=== PATIENT | male | born 1935 | race Caucasian/White ===

== ENCOUNTER 2018-04-09 12:30 | Inpatient (IN) ==
--- NOTE | 2018-04-09 14:26 | ED ---
HPI General Chief complaint: Skin/Abscess/Foreign Body Stated complaint: Right foot complaint Time Seen by Provider: 04/09/18 14:14 History of Present Illness HPI narrative: 83-year-old male with history of diabetes, previous toe amputation, presents from [facility] for evaluation of right second toe infection. The patient reports that he bumped his toe 5 days ago and he sustained a wound. I called and spoke to the nurse at [place] who says that he is actually had a wound on his dorsal right second toe over the past several weeks which has been nonhealing. Initially he was started on ciprofloxacin with no improvement, then he was on a 2-week course of doxycycline with no improvement. He has had debridement of the wound with no improvement. Today he was seen by inventory specialist manager Dr. Jackson and sent here for further treatment of this wound. He denies any pain. He denies any fevers, chills, weakness. Related Data Home Medications Medication Instructions Recorded Confirmed aspirin 81 mg PO DAILY 04/09/18 04/09/18 atorvastatin 10 mg PO DAILY 04/09/18 04/09/18 citalopram 20 mg PO DAILY 04/09/18 04/09/18 insulin degludec [Tresiba 100 unit SUBCUT DAILY 04/09/18 04/09/18 FlexTouch U-100] levothyroxine [Synthroid] 100 mcg PO DAILY 04/09/18 04/09/18 linagliptin [Tradjenta] 5 mg PO DAILY 04/09/18 04/09/18 lisinopril 30 mg PO DAILY 04/09/18 04/09/18 melatonin 5 mg PO HS PRN 04/09/18 04/09/18 metformin 1,000 mg PO BID 04/09/18 04/09/18 omeprazole 20 mg PO DAILY 04/09/18 04/09/18 ranitidine HCl [Zantac] 150 mg PO DAILY 04/09/18 04/09/18 Allergies Allergy/AdvReac Type Severity Reaction Status Date / Time No Known Allergies Allergy Verified 04/09/18 14:49 Review of Systems ROS: all other systems reviewed are negative [facility] Medical History Medical History Amputated great toe (Acute) Diabetes (Acute) Hypothyroidism (Acute) Senile dementia (Acute) Social History Social History Substance History: No History of Abuse Second Hand Smoke Exposure: No Smoking Status: Former smoker Tobacco Type: Cigarettes How Often Do You Have a Drink Containing Alcohol: Never Recent Travel in [facility] within the Last 8 Weeks: No Recent Out of Country Travel within the Last 8 Weeks: No Exam Narrative Exam Narrative: GENERAL: Well-developed well-nourished male in no acute distress SKIN: Warm and dry. Examination of the dorsal aspect of the right second toe reveals a wound with some scabbing, some surrounding erythema and induration. There is a small amount of purulent yellow drainage. A wound culture was obtained. HEAD: Atraumatic. Normocephalic. EYES: Pupils equal and round. No scleral icterus. No injection or drainage. ENT: No nasal bleeding or discharge. Mucous membranes pink and moist. NECK: Trachea midline. No JVD. CARDIOVASCULAR: Regular rate and rhythm. No murmur appreciated. RESPIRATORY: No accessory muscle use. Clear to auscultation. Breath sounds equal bilaterally. GASTROINTESTINAL: Abdomen soft, non-tender, nondistended. Hepatic and splenic margins not palpable. MUSCULOSKELETAL: Skin as noted above. Previous right first toe amputation noted. 2+ dorsalis pedis and posterior tibial pulses noted in the right lower extremity. NEUROLOGICAL: Awake and alert. No obvious cranial nerve deficits. Motor grossly within normal limits. Normal speech. Course Initial Documented Vital Signs Temperature 97.6 F 04/09/18 12:35 Pulse Rate 75 04/09/18 12:35 Respiratory Rate 16 04/09/18 12:35 Blood Pressure 98/62 L 04/09/18 12:35 Pulse Oximetry 96 04/09/18 12:35 Last Documented Vital Signs Temperature 97.8 F 04/09/18 14:38 Pulse Rate 77 04/09/18 14:38 Respiratory Rate 17 04/09/18 14:38 Blood Pressure 136/84 04/09/18 14:38 Pulse Oximetry 96 04/09/18 14:38 Medical Decision Making ROMAN Attestation ROMAN supervised visit: Yes Attestation: I, Dr. Howard, have reviewed the advance practice practitioner's documentation and am in agreement, met with the patient face to face, made the diagnosis, and the medical decision making was done by me. *My assessment and Findings: Patient seen and examined by me in addition to Polo Cook, agree with his documentation MDM Narrative Medical decision making narrative: Lab work, wound culture, blood cultures, right second toe x-ray obtained. The patient was given vancomycin and Zosyn. Lab work reveals WBC count of 14.5, lactic acid 2.1, CRP is slightly elevated, 1 L normal saline bolus administered. X-ray imaging is consistent with osteomyelitis of the right second toe. The patient will be admitted. Medical Screen Exam Complete: Yes Emergency Medical Condition: Yes Differential Diagnosis Differential Diagnosis: Diabetic foot wound, cellulitis, osteomyelitis Lab Data Result diagrams: 04/09/18 14:40 04/09/18 14:40 Lab Results 04/09/18 04/09/18 04/09/18 Range/Units 14:40 14:40 14:40 WBC 14.7 H (4.0-11.0) th/mm3 RBC 4.76 (4.50-5.90) mil/mm3 Hgb 16.0 (13.0-17.0) gm/dL Hct 46.7 (39.0-51.0) % MCV 98.1 (80.0-100.0) fL MCH 33.7 (27.0-34.0) pg MCHC 34.3 (32.0-36.0) % RDW 13.7 (11.6-17.2) % Plt Count 189 (150-450) th/mm3 MPV 9.1 (7.0-11.0) fL Neut % (Auto) 79.0 H (16.0-70.0) % Lymph % (Auto) 9.4 (9.0-44.0) % [place] % (Auto) 8.1 H (0.0-8.0) % Eos % (Auto) 2.9 (0.0-4.0) % Baso % (Auto) 0.6 (0.0-2.0) % Neut # (Auto) 11.6 H (1.8-7.7) th/mm3 Lymph # (Auto) 1.4 (1.0-4.8) th/mm3 [place] # (Auto) 1.2 H (0.0-0.9) th/mm3 Eos # (Auto) 0.4 (0.0-0.4) th/mm3 Baso # (Auto) 0.1 (0.0-0.2) th/mm3 WBC Differential . Differential Comment Auto diff final ESR (0-20) mm/hr PT 10.9 (9.8-11.6) sec INR 1.1 Ratio APTT 28.7 (23.4-31.7) sec Sodium 136 (136-145) meq/L Potassium 5.0 (3.5-5.1) meq/L Chloride 102 (98-107) meq/L Carbon Dioxide 27.5 (21.0-32.0) meq/L Anion Gap 7 (5-15) meq/L BUN 14 (7-18) mg/dL Creatinine 1.55 H (0.60-1.30) mg/dL Estimated GFR 43 L (>89) mL/min Random Glucose 78 (74-106) mg/dL Lactic Acid (0.4-2.0) mmol/L Calcium 8.1 L (8.5-10.1) mg/dL Total Bilirubin 1.4 H (0.2-1.0) mg/dL AST 13 L (15-37) U/L ALT 15 (12-78) U/L Alkaline Phosphatase 111 (45-117) U/L C-Reactive Protein 0.36 H (0.00-0.30) mg/dL Total Protein 6.7 (6.4-8.2) g/dL Albumin 2.8 L (3.4-5.0) g/dL 04/09/18 04/09/18 Range/Units 14:40 14:40 WBC (4.0-11.0) th/mm3 RBC (4.50-5.90) mil/mm3 Hgb (13.0-17.0) gm/dL Hct (39.0-51.0) % MCV (80.0-100.0) fL MCH (27.0-34.0) pg MCHC (32.0-36.0) % RDW (11.6-17.2) % Plt Count (150-450) th/mm3 MPV (7.0-11.0) fL Neut % (Auto) (16.0-70.0) % Lymph % (Auto) (9.0-44.0) % [place] % (Auto) (0.0-8.0) % Eos % (Auto) (0.0-4.0) % Baso % (Auto) (0.0-2.0) % Neut # (Auto) (1.8-7.7) th/mm3 Lymph # (Auto) (1.0-4.8) th/mm3 [place] # (Auto) (0.0-0.9) th/mm3 Eos # (Auto) (0.0-0.4) th/mm3 Baso # (Auto) (0.0-0.2) th/mm3 WBC Differential Differential Comment ESR 2 (0-20) mm/hr PT (9.8-11.6) sec INR Ratio APTT (23.4-31.7) sec Sodium (136-145) meq/L Potassium (3.5-5.1) meq/L Chloride (98-107) meq/L Carbon Dioxide (21.0-32.0) meq/L Anion Gap (5-15) meq/L BUN (7-18) mg/dL Creatinine (0.60-1.30) mg/dL Estimated GFR (>89) mL/min Random Glucose (74-106) mg/dL Lactic Acid 2.1 H (0.4-2.0) mmol/L Calcium (8.5-10.1) mg/dL Total Bilirubin (0.2-1.0) mg/dL AST (15-37) U/L ALT (12-78) U/L Alkaline Phosphatase (45-117) U/L C-Reactive Protein (0.00-0.30) mg/dL Total Protein (6.4-8.2) g/dL Albumin (3.4-5.0) g/dL Imaging Data Radiologist's impression: Toe X-Ray 04/09/18 14:22 CONCLUSION: Destructive change involving the second middle and proximal phalanges prostatic of osteomyelitis Discharge Plan Discharge Disposition Patient Disposition: ED Admit(ED Internal Use Only) Discharge Condition Condition: Stable Discharge Order Discharge Orders: ED Use Only Admit Order (Routine); Ordered 04/09/18 Ordered By: Polo Cook Discharge Details Diagnosis: Osteomyelitis Physicians Team ED Provider: Celso Pearson ED Midlevel Provider: Polo Cook Primary Care Provider: Reji Velazquez V Rxs /Orders / Referrals /Forms Prescriptions: No Action atorvastatin 10 mg Tablet 10 mg PO DAILY RF: 0 levothyroxine [Synthroid] 100 mcg Tablet 100 mcg PO DAILY RF: 0 citalopram 20 mg Tablet 20 mg PO DAILY RF: 0 metformin 1,000 mg Tablet 1,000 mg PO BID RF: 0 ranitidine HCl [Zantac] 150 mg Tablet 150 mg PO DAILY RF: 0 lisinopril 30 mg Tablet 30 mg PO DAILY RF: 0 omeprazole 20 mg Capsule,Delayed Release(Dr/Ec) 20 mg PO DAILY RF: 0 aspirin 81 mg Tablet,Chewable 81 mg PO DAILY RF: 0 melatonin 5 mg Tablet 5 mg PO HS PRN (Reason: Insomnia) RF: 0 linagliptin [Tradjenta] 5 mg Tablet 5 mg PO DAILY RF: 0 insulin degludec [Tresiba FlexTouch U-100] 100 unit/mL (3 mL) Insulin Pen 100 unit SUBCUT DAILY RF: 0 Status ED Status: Pending Admission
--- NOTE | 2018-04-09 14:46 | XR ---
EXAM DATE: 04/09/2018 2:39 PM EST AGE/SEX: 83 years / Male INDICATIONS: Right 2nd toe pain stub it 5 days ago. CLINICAL DATA: This is the patient's initial encounter. Patient reports that signs and symptoms have been present for 1 day and indicates a pain score of 1/10. MEDICAL/SURGICAL HISTORY: Diabetes mellitus type II. . 1st toe amputated. COMPARISON: No prior exams available for comparison. FINDINGS: Multiple views of the second digit were obtained and demonstrate lytic and destructive change involvi ng the mid and distal aspect of the second proximal phalanx and base of the second middle phalanx. Th e middle phalanx appears partially subluxed and there is no normal residual joint. There is diffuse s oft tissue swelling. The patient is status post amputation of the first digit down to level of the me tatarsal head. CONCLUSION: Destructive change involving the second middle and proximal phalanges prostatic of osteomyelitis Electronically signed by: Bobby Valencia MD Board Certified Radiologist 04/09/2018 2:44 PM EST
[2018-04-09] MEDS ORDERED: Vancomycin Inj 1,000 MG in Sodium Chlor 0.9% Inj 250 ML IV.SIG ONE (14:51)
[2018-04-09 15:12] LABS: Baso # (Auto) 0.1 th/mm3 (0.0-0.2); Baso % (Auto) 0.6 % (0.0-2.0); Eos # (Auto) 0.4 th/mm3 (0.0-0.4); Eos % (Auto) 2.9 % (0.0-4.0); Hematocrit 46.7 % (39.0-51.0); Lymph # (Auto) 1.4 th/mm3 (1.0-4.8); Lymph % (Auto) 9.4 % (9.0-44.0); Mean Corpuscular HGB Conc 34.3 % (32.0-36.0); Mean Corpuscular Hemoglobin 33.7 pg (27.0-34.0); Mean Corpuscular Volume 98.1 fL (80.0-100.0); Mean Platelet Volume 9.1 fL (7.0-11.0); Mono # (Auto) 1.2 th/mm3 (0.0-0.9); Mono % (Auto) 8.1 % (0.0-8.0); Neut # (Auto) 11.6 th/mm3 (1.8-7.7); Platelet Count 189 th/mm3 (150-450); Red Blood Count 4.76 mil/mm3 (4.50-5.90); Red Cell Distribution Width 13.7 % (11.6-17.2); White Blood Count 14.7 th/mm3 (4.0-11.0)
[2018-04-09] MEDS ORDERED: Piperacil/Tazo 3.375 GM Premix 3.375 GM/50 ML PIGGYBACK IV.SIG ONE (15:15)
[2018-04-09 15:21] LABS: Activated Partial Thrombo Time 28.7 sec (23.4-31.7); INR 1.1 Ratio; Prothrombin Time 10.9 sec (9.8-11.6)
[2018-04-09 15:24] LABS: Alanine Aminotransferase 15 U/L (12-78); Albumin 2.8 g/dL (3.4-5.0); Anion Gap 7 meq/L (5-15); Aspartate Aminotransferase 13 U/L (15-37); Blood Urea Nitrogen 14 mg/dL (7-18); C-Reactive Protein 0.36 mg/dL (0.00-0.30); Calcium 8.1 mg/dL (8.5-10.1); Carbon Dioxide 27.5 meq/L (21.0-32.0); Chloride 102 meq/L (98-107); Glomerular Filtration Rate 43 mL/min (>89); Glucose,Random 78 mg/dL (74-106); Sodium 136 meq/L (136-145)
[2018-04-09 15:27] LABS: Alkaline Phosphatase 111 U/L (45-117); Total Protein 6.7 g/dL (6.4-8.2)
[2018-04-09] MEDS ORDERED: Sod Chloride 0.9% Inj 1,000 ML IV.SIG SCH (15:30)
--- NOTE | 2018-04-09 17:09 | P.HPIM ---
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 Patient was brought in from [facility] for a right foot 2nd digit draining ulceration. He was treated outpatient with Doxycycline and Cipro however did not have any improvement in his symptoms. He was seen by a health services information specialist Dr. Jackson and was sent here for further eval and care. Patient denies any significant pain, no fevers , no chills. He does not have any other complaints. PMH DM, Hypothyroidism, Dementia, Surg Hx Right foot 1st digit amputation Fam Hx significant for DM Social Hx Patient denies any hx of tobacco use, Says he rarely drank any etoh his whole life, No hx drug use. Inpatient Certification: I certify that the inpatient services were ordered in accordance with Medicare regulations governing the order. This includes certification that hospital inpatient services are reasonable and necessary and in the case of services not specified as inpatient-only under 42 CFR 419.22(n), that they are appropriately provided as inpatient services in accordance to with the 2-midnight benchmark under 43 CFR 412.3(e) Review of Systems All other systems reviewed negative except as stated in HPI PMFSH - History History Provided By: Patient - Medical History Medical History: Medical History (Last Updated 04/09/18 @ 15:07 by Delfina Palomino) Amputated great toe Diabetes Hypothyroidism Senile dementia - Tobacco History Second Hand Smoke Exposure: No Tobacco Use In Past 30 Days: No Smoking Status: Former smoker Tobacco Type: Cigarettes - Alcohol History How Often Do You Have a Drink Containing Alcohol: Never - Substance Use History Substance History: No History of Abuse - Travel History Recent Travel in the [facility] Within the Last 8 Weeks: No Recent Travel Out of the Country Within the Last 8 Weeks: No - Immunization History Tetanus Immunization: >5 Years Medications and Allergies Active Medications: Active Medications Sodium Chloride (Ns Flush) 2 ml IV.FLUSH PRN PRN PRN Reason: FLUSH AFTER USING IV ACCESS Last Admin: 04/09/18 15:03 Dose: 2 ml Allergies Allergy/AdvReac Type Severity Reaction Status Date / Time No Known Allergies Allergy Verified 04/09/18 14:49 Home Medications Medication Instructions Recorded Confirmed Type aspirin 81 mg PO DAILY 04/09/18 04/09/18 History atorvastatin 10 mg PO DAILY 04/09/18 04/09/18 History citalopram 20 mg PO DAILY 04/09/18 04/09/18 History insulin degludec [Tresiba 100 unit SUBCUT DAILY 04/09/18 04/09/18 History FlexTouch U-100] levothyroxine [Synthroid] 100 mcg PO DAILY 04/09/18 04/09/18 History linagliptin [Tradjenta] 5 mg PO DAILY 04/09/18 04/09/18 History lisinopril 30 mg PO DAILY 04/09/18 04/09/18 History melatonin 5 mg PO HS PRN 04/09/18 04/09/18 History metformin 1,000 mg PO BID 04/09/18 04/09/18 History omeprazole 20 mg PO DAILY 04/09/18 04/09/18 History ranitidine HCl [Zantac] 150 mg PO DAILY 04/09/18 04/09/18 History Exam Vital signs: Vital Signs 04/09/18 12:35 04/09/18 14:22 04/09/18 14:38 Temperature 97.6 F 97.9 F 97.8 F Pulse Rate 75 78 77 Respiratory Rate 16 17 17 Blood Pressure 98/62 L 139/85 136/84 Pulse Oximetry 96 96 96 Intake & Output 04/08/18 04/09/18 04/09/18 18:59 06:59 18:59 Intake Total 300 / 300 Balance 300 / 300 Weight 81.647 kg Intake: IV 300 / 300 Zosyn 3.375 GM Premix 3.375 gm 50 / 50 In 50 ml @ 100 mls/hr IV.SIG ONCE ONE Rx#:[id number] Vancomycin Inj 1,000 MG In NS 250 / 250 Inj 250 ML @ 250 mls/hr IV.SIG ONCE ONE Rx#:[id number] Narrative: Alert and oriented x 3 S1 S2 CTA B/L Abd soft, nontender, normal bowel sounds Exts Right foot 2nd digit ulceration on dorsal aspect s/p amputation of right 1st digit. Neuro No neuro deficits. Results - Labs CBC & Chem 7: 04/09/18 14:40 04/09/18 14:40 Labs: Short CBC 04/09/18 Range/Units 14:40 WBC 14.7 H (4.0-11.0) th/mm3 Hgb 16.0 (13.0-17.0) gm/dL Hct 46.7 (39.0-51.0) % Plt Count 189 (150-450) th/mm3 [facility] 04/09/18 14:40 Sodium 136 Potassium 5.0 Chloride 102 Carbon Dioxide 27.5 BUN 14 Creatinine 1.55 H Calcium 8.1 L Liver Function 04/09/18 Range/Units 14:40 Total Bilirubin 1.4 H (0.2-1.0) mg/dL AST 13 L (15-37) U/L ALT 15 (12-78) U/L Alkaline Phosphatase 111 (45-117) U/L Albumin 2.8 L (3.4-5.0) g/dL - Imaging Impressions Toe X-Ray 04/09/18 14:22 CONCLUSION: Destructive change involving the second middle and proximal phalanges prostatic of osteomyelitis Caprini VTE Risk Assessment Caprini VTE Risk Assessment: Moderate/High Risk (score >= 2) Caprini Risk Assessment Model: Point Value = 1 Point Value = 2 Point Value = 3 Point Value = 5 Age 41-60 Minor surgery BMI > 25 kg/m2 Swollen legs Varicose veins or History of unexplained or recurrent spontaneous Oral contraceptives or hormone replacement Sepsis (< 1 month) Serious lung disease, including pneumonia (< 1 month) Abnormal pulmonary function Acute myocardial infarction Congestive heart failure (< 1 month) History of inflammatory bowel disease Medical patient at bed rest Age 61-74 Arthroscopic surgery Major open surgery (> 45 min) Laparoscopic surgery (> 45 min) Malignancy Confined to bed (> 72 hours) Immobilizing plaster cast Central venous access Age >= 75 History of VTE Family history of VTE Factor V Leiden Prothrombin 23024A Lupus anticoagulant Anticardiolipin antibodies Elevated serum homocysteine Heparin-induced thrombocytopenia Other congenital or acquired thrombophilia Stroke (< 1 month) Elective arthroplasty Hip, pelvis, or leg fracture Acute spinal cord injury (< 1 month) Prophylaxis Regimen: Total Risk Factor Score Risk Level Prophylaxis Regimen 0-1 Low Early ambulation 2 Moderate Order ONE of the following: *Sequential Compression Device (SCD) *Heparin 5000 units SQ BID 3-4 Higher Order ONE of the following medications: *Heparin 5000 units SQ TID *Enoxaparin/Lovenox 40 mg SQ daily (WT < 150 kg, CrCl > 30 mL/min) *Enoxaparin/Lovenox 30 mg SQ daily (WT < 150 kg, CrCl > 10-29 mL/min) *Enoxaparin/Lovenox 30 mg SQ BID (WT < 150 kg, CrCl > 30 mL/min) AND/OR *Sequential Compression Device (SCD) 5 or more Highest Order ONE of the following medications: *Heparin 5000 units SQ TID (Preferred with Epidurals) *Enoxaparin/Lovenox 40 mg SQ daily (WT < 150 kg, CrCl > 30 mL/min) *Enoxaparin/Lovenox 30 mg SQ daily (WT < 150 kg, CrCl > 10-29 mL/min) *Enoxaparin/Lovenox 30 mg SQ BID (WT < 150 kg, CrCl > 30 mL/min) AND *Sequential Compression Device (SCD) Assessment and Plan - Plan This patient is an 83 y/o Male with a Dx of DM, Hypothyroidism, Dementia, hx of Right foot 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 Patient was brought in from [facility] for a right foot 2nd digit draining ulceration. He was treated outpatient with Doxycycline and Cipro however did not have any improvement in his symptoms. He was seen by a health services information specialist Dr. Jackson and was sent here for further eval and care. Patient denies any significant pain, no fevers , no chills. He does not have any other complaints. 1. Severe Sepsis 2/2 Right foot 2nd digit cellulitis concern for Osteomyelitis Patient with tachycardia, elevated lactate, and elevated wbc count. Blood cultures ordered. Patient started on IVF. Follow up repeat lactate. Continue IV vancomycin and zosyn. Xray shows destructive changes involving the 2nd middle and prox phalanges suggestive of osteomyelitis. Podiatry will be consulted to evaluate the patient. 2. DM Continue low dose insulin sliding scale. As per documentation patient takes 50 units of sub q Degludec daily. His blood sugar here is around 75. We will monitor his blood sugars and start basal insulin after closer monitoring of his blood sugars to avoid hypoglycemia. 3. DLD Continue statin. Cont aspirin. 4. Hypothyroidism Continue levothyroxine. No pharmacotherapy for DVT prophylaxis as patient may need intervention tomorrow.
[2018-04-09] MEDS ORDERED: Dextrose 50% in Water 50 ML Vial IV.PUSH PRN (17:13)
[2018-04-09] MEDS: Sod Chloride 0.9% Inj 1,000 ML IV.CONT SCH (17:48)
[2018-04-09] MEDS: Insulin NovoLOG Aspart Correctional Sugar Inj SQ SCH (20:37)
[2018-04-09] MEDS ORDERED: Insulin Glargine Inj 1,000 UNITS/10 ML Vial SQ SCH (21:00)
[2018-04-09] MEDS: Piperacil/Tazo 3.375 GM Premix 3.375 GM/50 ML PIGGYBACK IV.SIG SCH (21:05)
[2018-04-10] MEDS: Piperacil/Tazo 3.375 GM Premix 3.375 GM/50 ML PIGGYBACK IV.SIG SCH ×4 (03:41→21:13)
[2018-04-10] MEDS: Sod Chloride 0.9% Inj 1,000 ML IV.CONT SCH ×4 (03:42→23:30)
[2018-04-10] MEDS: Levothyroxine 100 MCG Tablet PO SCH (05:16)
[2018-04-10 05:54] LABS: Baso # (Auto) 0.1 th/mm3 (0.0-0.2); Baso % (Auto) 0.6 % (0.0-2.0); Eos # (Auto) 0.3 th/mm3 (0.0-0.4); Eos % (Auto) 3.5 % (0.0-4.0); Hematocrit 44.8 % (39.0-51.0); Hemoglobin 15.4 gm/dL (13.0-17.0); Lymph # (Auto) 1.3 th/mm3 (1.0-4.8); Lymph % (Auto) 13.3 % (9.0-44.0); Mean Corpuscular HGB Conc 34.4 % (32.0-36.0); Mean Corpuscular Hemoglobin 33.5 pg (27.0-34.0); Mean Corpuscular Volume 97.6 fL (80.0-100.0); Mean Platelet Volume 9.1 fL (7.0-11.0); Mono % (Auto) 10.6 % (0.0-8.0); Neut # (Auto) 6.8 th/mm3 (1.8-7.7); Platelet Count 151 th/mm3 (150-450); Red Blood Count 4.59 mil/mm3 (4.50-5.90); Red Cell Distribution Width 13.8 % (11.6-17.2); White Blood Count 9.5 th/mm3 (4.0-11.0)
[2018-04-10 06:36] LABS: Calcium 8.1 mg/dL (8.5-10.1); Carbon Dioxide 26.4 meq/L (21.0-32.0); Magnesium 1.6 mg/dL (1.5-2.5)
[2018-04-10] MEDS: Vancomycin Inj 1,000 MG in Sodium Chlor 0.9% Inj 250 ML IV.SIG SCH (08:59)
[2018-04-10] MEDS: Pantoprazole Sodium 20 MG DR Tablet PO SCH (08:59)
[2018-04-10] MEDS: Citalopram 20 MG Tablet PO SCH (08:59)
[2018-04-10] MEDS ORDERED: Magnesium Sulfate Inj 2 GM in Sodium Chlor 0.9% Inj 96 ML IV.SIG ONE (10:18)
--- NOTE | 2018-04-10 10:22 | P.PNIM ---
Subjective Interval history: Patient complains of some pain of the right foot. No other complaints. Physical Exam Vital signs: Vital Signs 04/09/18 12:35 04/09/18 14:22 04/09/18 14:38 Temperature 97.6 F 97.9 F 97.8 F Pulse Rate 75 78 77 Respiratory Rate 16 17 17 Blood Pressure 98/62 L 139/85 136/84 Pulse Oximetry 96 96 96 04/09/18 17:10 04/09/18 17:54 04/09/18 18:10 Temperature 97.9 F 97.8 F Pulse Rate 78 73 76 Respiratory Rate 17 16 Blood Pressure 118/68 124/77 Pulse Oximetry 97 98 04/09/18 19:03 04/09/18 20:00 04/10/18 00:00 Temperature 98.3 F 97.6 F 97.6 F Pulse Rate 74 72 67 Respiratory Rate 18 16 16 Blood Pressure 127/85 120/80 Pulse Oximetry 96 93 L 94 L 04/10/18 04:00 04/10/18 08:00 Temperature 97.8 F 97.6 F Pulse Rate 70 69 Respiratory Rate 16 16 Blood Pressure 111/70 130/72 Pulse Oximetry 94 L 92 L Intake & Output 04/09/18 04/10/18 04/10/18 18:59 06:59 18:59 Intake Total 1300 / 1300 1100 / 1100 Output Total 1800 / 1800 Balance 1300 / 1300 -700 / -700 Weight 81.647 kg 85.8 kg Intake: IV 1300 / 1300 1100 / 1100 NS Inj 1,000 ML @ 100 mls/hr IV 1000 / 1000 .CONT .Q10H STACY Rx#:[id number] Zosyn 3.375 GM Premix 3.375 gm 50 / 50 100 / 100 In 50 ml @ 100 mls/hr IV.SIG Q6H STACY Rx#:[id number] NS Inj 1,000 ML @ 1000 mls/hr 1000 / 1000 IV.SIG BOLUS STACY Rx#:[id number] Vancomycin Inj 1,000 MG In NS 250 / 250 Inj 250 ML @ 250 mls/hr IV.SIG ONCE ONE Rx#:[id number] Output: Urine 1800 / 1800 Other: Weight On Admission 87.1 kg Narrative: Alert and oriented x 3 S1 S2 CTA B/L Abd soft, nontender, normal bowel sounds Exts Right foot 2nd digit ulceration on dorsal aspect s/p amputation of right 1st digit. Neuro No neuro deficits. Results - Labs CBC & Chem 7: 04/10/18 05:35 04/10/18 05:35 Laboratory Results - last 24 hr 04/09/18 04/09/18 04/09/18 14:40 14:40 14:40 WBC 14.7 H RBC 4.76 Hgb 16.0 Hct 46.7 MCV 98.1 MCH 33.7 MCHC 34.3 RDW 13.7 Plt Count 189 MPV 9.1 Neut % (Auto) 79.0 H Lymph % (Auto) 9.4 [place] % (Auto) 8.1 H Eos % (Auto) 2.9 Baso % (Auto) 0.6 Neut # (Auto) 11.6 H Lymph # (Auto) 1.4 [place] # (Auto) 1.2 H Eos # (Auto) 0.4 Baso # (Auto) 0.1 WBC Differential . Differential Comment Auto diff final ESR PT 10.9 INR 1.1 APTT 28.7 Sodium 136 Potassium 5.0 Chloride 102 Carbon Dioxide 27.5 Anion Gap 7 BUN 14 Creatinine 1.55 H Estimated GFR 43 L POC Glucose Random Glucose 78 Lactic Acid Calcium 8.1 L Magnesium Total Bilirubin 1.4 H AST 13 L ALT 15 Alkaline Phosphatase 111 C-Reactive Protein 0.36 H Total Protein 6.7 Albumin 2.8 L 04/09/18 04/09/18 04/09/18 14:40 14:40 17:40 WBC RBC Hgb Hct MCV MCH MCHC RDW Plt Count MPV Neut % (Auto) Lymph % (Auto) [place] % (Auto) Eos % (Auto) Baso % (Auto) Neut # (Auto) Lymph # (Auto) [place] # (Auto) Eos # (Auto) Baso # (Auto) WBC Differential Differential Comment ESR 2 PT INR APTT Sodium Potassium Chloride Carbon Dioxide Anion Gap BUN Creatinine Estimated GFR POC Glucose Random Glucose Lactic Acid 2.1 H 2.5 H Calcium Magnesium Total Bilirubin AST ALT Alkaline Phosphatase C-Reactive Protein Total Protein Albumin 04/09/18 04/09/18 04/09/18 17:45 19:50 20:31 WBC RBC Hgb Hct MCV MCH MCHC RDW Plt Count MPV Neut % (Auto) Lymph % (Auto) [place] % (Auto) Eos % (Auto) Baso % (Auto) Neut # (Auto) Lymph # (Auto) [place] # (Auto) Eos # (Auto) Baso # (Auto) WBC Differential Differential Comment ESR PT INR APTT Sodium Potassium Chloride Carbon Dioxide Anion Gap BUN Creatinine Estimated GFR POC Glucose 148 H 138 H Random Glucose Lactic Acid 2.5 H Calcium Magnesium Total Bilirubin AST ALT Alkaline Phosphatase C-Reactive Protein Total Protein Albumin 04/10/18 04/10/18 04/10/18 05:35 05:35 08:01 WBC 9.5 RBC 4.59 Hgb 15.4 Hct 44.8 MCV 97.6 MCH 33.5 MCHC 34.4 RDW 13.8 Plt Count 151 MPV 9.1 Neut % (Auto) 72.0 H Lymph % (Auto) 13.3 [place] % (Auto) 10.6 H Eos % (Auto) 3.5 Baso % (Auto) 0.6 Neut # (Auto) 6.8 Lymph # (Auto) 1.3 [place] # (Auto) 1.0 H Eos # (Auto) 0.3 Baso # (Auto) 0.1 WBC Differential . Differential Comment Auto diff final ESR PT INR APTT Sodium 142 Potassium 4.0 D Chloride 108 H Carbon Dioxide 26.4 Anion Gap 8 BUN 12 Creatinine 1.39 H Estimated GFR 49 L POC Glucose 75 Random Glucose 66 L Lactic Acid Calcium 8.1 L Magnesium 1.6 Total Bilirubin AST ALT Alkaline Phosphatase C-Reactive Protein Total Protein Albumin Microbiology 04/09/18 14:20 Abscess - Toe Gram Stain - Final - Imaging Impressions Toe X-Ray 04/09/18 14:22 CONCLUSION: Destructive change involving the second middle and proximal phalanges prostatic of osteomyelitis Assessment and Plan - Plan This patient is an 83 y/o Male with a Dx of DM, Hypothyroidism, Dementia, hx of Right foot 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 Patient was brought in from [facility] for a right foot 2nd digit draining ulceration. He was treated outpatient with Doxycycline and Cipro however did not have any improvement in his symptoms. He was seen by a differential specialist Dr. Jackson and was sent here for further eval and care. Patient denies any significant pain, no fevers , no chills. He does not have any other complaints. 1. Severe Sepsis 2/2 Right foot 2nd digit cellulitis concern for Osteomyelitis WBC count normalized. Lactate increased to 2.5. Continue ivf, repeat lactate pending. Blood cultures negative up until now. Continue IV vancomycin and zosyn. Xray shows destructive changes involving the 2nd middle and prox phalanges suggestive of osteomyelitis. Podiatry was consulted to evaluate the patient. Will follow up with their recs. 2. DM Continue low dose insulin sliding scale. As per documentation patient takes 50 units of sub q Degludec daily. Blood sugars ranging from 70s to 140s. Will continue with sliding scale for now. 3. DLD Continue statin. Cont aspirin. 4. Hypothyroidism Continue levothyroxine. No pharmacotherapy for DVT prophylaxis as patient may need surgical intervention.
[2018-04-10] MEDS: Insulin NovoLOG Aspart Correctional Sugar Inj SQ SCH ×4 (10:45→21:15)
[2018-04-10] MEDS: Mag Sulf 1 gm/100 ml Premix 100 ML IV.SIG SCH ×2 (11:36→13:02)
--- NOTE | 2018-04-10 18:51 | MB ---
cc: Nguyen Bianchi DPM DATE: 04/10/2018 REASON FOR CONSULTATION: Right second digit osteomyelitis. HISTORY OF PRESENT ILLNESS: The patient is an 83-year-old male with a history of DM, hypothyroidism, dementia and right foot first ray amputation. The patient had a previous ulcer, was being treated by Dr. Jackson at the facility of [facility]. Patient denies any nausea, vomiting, fever, diarrhea, or chills. SOCIAL HISTORY: Denies illicit drugs, tobacco, and social alcohol. PHYSICAL EXAMINATION: DP and PT palpable. Right second digit contracted hammertoe. Edema, erythema. No active drainage. Fibrotic ulcers x2. ____ examination: Grossly absent. Well-healed incision at the first ray amputation. LABORATORY DATA:. On 04/10/____, WBCs 9.5, RBC of 4.59, H and H 15.4 and 44.8. ESR of 2. Right foot, 3 views, nonweightbearing: Fracture at the proximal phalanx with osteolysis of the bony anatomy at the proximal phalanx. Mild edema noted. ASSESSMENT: 1. Diabetes mellitus with neuropathy. 2. Right second digit osteomyelitis. Discussed with the patient conservative versus surgical intervention. The patient is adamant that he does not want additional amputation of the right second digit. Recommended 6 weeks of IV antibiotics and he can up with Dr. Jackson at his facility for continued . . I will be signing off at this point in time. Nguyen Bianchi DPM SR/mariann , 05:16 PM , 05:23 PM
[2018-04-10] MEDS: Melatonin 5 MG Tablet PO PRN (21:13)
[2018-04-11] MEDS: Piperacil/Tazo 3.375 GM Premix 3.375 GM/50 ML PIGGYBACK IV.SIG SCH ×2 (03:48→11:52)
[2018-04-11] MEDS: Sod Chloride 0.9% Inj 1,000 ML IV.CONT SCH ×3 (03:50→21:31)
[2018-04-11] MEDS: Levothyroxine 100 MCG Tablet PO SCH (06:17)
[2018-04-11] MEDS: Insulin NovoLOG Aspart Correctional Sugar Inj SQ SCH ×4 (08:30→21:32)
[2018-04-11 10:08] LABS: Calcium 7.4 mg/dL (8.5-10.1); Carbon Dioxide 25.5 meq/L (21.0-32.0); Magnesium 1.8 mg/dL (1.5-2.5); Potassium 4.3 meq/L (3.5-5.1)
[2018-04-11 10:17] LABS: Albumin 2.5 g/dL (3.4-5.0); Calcium-Albumin Corrected 8.6 mg/dL (8.5-10.1)
--- NOTE | 2018-04-11 10:33 | P.PNIM ---
Subjective Interval history: Patient complains of some pain in the distal second digit of the right foot. Otherwise no complaint. Physical Exam Vital signs: Vital Signs 04/10/18 12:00 04/10/18 16:00 04/10/18 20:00 Temperature 97.5 F L 98.9 F 98.1 F Pulse Rate 75 75 78 Respiratory Rate 16 16 16 Blood Pressure 123/75 164/84 H 128/66 Pulse Oximetry 96 94 L 95 04/11/18 00:00 04/11/18 04:00 04/11/18 08:00 Temperature 98 F 97.1 F L 97.5 F L Pulse Rate 71 67 67 Respiratory Rate 17 18 18 Blood Pressure 106/54 L 115/66 137/79 Pulse Oximetry 95 94 L 93 L Intake & Output 04/10/18 04/11/18 04/11/18 18:59 06:59 18:59 Intake Total 550 / 550 1310 / 1310 Output Total 350 / 350 675 / 675 Balance 200 / 200 635 / 635 Weight 85.5 kg Intake: IV 550 / 550 1310 / 1310 NS Inj 1,000 ML @ 100 mls/hr IV 1210 / 1210 .CONT .Q10H [facility] Rx#:[id number] Magnesium Sulfate 1 gm/D5W 100 200 / 200 ml Premix 100 ML @ 100 mls/hr IV.SIG Q1H [facility] Rx#:[id number] Zosyn 3.375 GM Premix 3.375 gm 100 / 100 100 / 100 In 50 ml @ 100 mls/hr IV.SIG Q6H [facility] Rx#:[id number] Vancomycin Inj 1,000 MG In NS 250 / 250 Inj 250 ML @ 250 mls/hr IV.SIG Q24H [facility] Rx#:[id number] Output: Urine 350 / 350 675 / 675 Narrative: Alert and oriented x 3 S1 S2 CTA B/L Abd soft, nontender, normal bowel sounds Exts Right foot 2nd digit ulceration on dorsal aspect s/p amputation of right 1st digit. Neuro No neuro deficits. Results - Labs CBC & Chem 7: 04/10/18 05:35 04/11/18 08:25 Laboratory Results - last 24 hr 04/10/18 04/10/18 04/10/18 10:39 13:01 17:21 Sodium Potassium Chloride Carbon Dioxide Anion Gap BUN Creatinine Estimated GFR POC Glucose 235 H 168 H Random Glucose Lactic Acid 1.4 Calcium Calcium Adj for Albumin Magnesium Albumin 04/10/18 04/11/18 04/11/18 19:59 07:55 08:25 Sodium 139 Potassium 4.3 Chloride 107 Carbon Dioxide 25.5 Anion Gap 7 BUN 11 Creatinine 1.35 H Estimated GFR 51 L POC Glucose 201 H 158 H Random Glucose 164 H Lactic Acid Calcium 7.4 L* Calcium Adj for Albumin 8.6 Magnesium 1.8 Albumin 2.5 L Microbiology 04/09/18 14:20 Abscess - Toe Gram Stain - Final 04/09/18 14:20 Abscess - Toe Wound Culture - Final Staphylococcus aureus 04/09/18 14:40 Blood - Peripheral Aerobic Blood Culture - Preliminary No growth in 1 day 04/09/18 14:40 Blood - Peripheral Anaerobic Blood Culture - Preliminary No growth in 1 day 04/09/18 14:45 Blood - Peripheral Aerobic Blood Culture - Preliminary No growth in 1 day 04/09/18 14:45 Blood - Peripheral Anaerobic Blood Culture - Preliminary No growth in 1 day Assessment and Plan - Plan This patient is an 83 y/o Male with a Dx of DM, Hypothyroidism, Dementia, hx of Right foot 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 Patient was brought in from [facility] for a right foot 2nd digit draining ulceration. He was treated outpatient with Doxycycline and Cipro however did not have any improvement in his symptoms. He was seen by a creative services specialist Dr. Jackson and was sent here for further eval and care. Patient denies any significant pain, no fevers , no chills. He does not have any other complaints. 1. Severe Sepsis 2/2 Right foot 2nd digit cellulitis concern for Osteomyelitis WBC count normalized. Lactate normalized Patient was evaluated by podiatry and the patient did not want to undergo amputation. Recommend agents from podiatry are to continue the patient on 6 weeks of IV antibiotics. Infectious disease consulted to evaluate the patient regarding his IV antibiotics. Will follow up with infectious disease. Continue IV vancomycin and zosyn. Xray shows destructive changes involving the 2nd middle and prox phalanges suggestive of osteomyelitis. 2. DM Continue low dose insulin sliding scale. 3. DLD Continue statin. Cont aspirin. 4. Hypothyroidism Continue levothyroxine.
[2018-04-11] MEDS: Citalopram 20 MG Tablet PO SCH (10:39)
[2018-04-11] MEDS: Pantoprazole Sodium 20 MG DR Tablet PO SCH (10:40)
[2018-04-11] MEDS: Vancomycin Inj 1,000 MG in Sodium Chlor 0.9% Inj 250 ML IV.SIG SCH (10:41)
--- NOTE | 2018-04-11 15:36 | P.CONID ---
History of Present Illness Service: Infectious disease Consult date: 04/11/18 Requesting Physician: Patricia Love Reason for Consult: Evaluate patient with osteomyelitis of the right second toe Primary Care Provider: Reji Velazquez MD History of Present Illness: Patient seen and examined. Records reviewed. Patient is an 83-year-old male, who developed a wound on his right second toe about a week or so ago. He could not really remember the details but he told me that he might have bumped it. He was given a course of antibiotic by his primary care physician. Patient was seen by the floor plan adjuster and was instructed to go to the hospital for further evaluation and treatment. Patient gets seen by the floor plan adjuster and his toenails get trimmed as needed. He has had previous infection in his right foot, of the big toe, about 2 years ago, and ended up getting amputation of the big toe. He has not had any fever chills or sweats. His white count was elevated on admission up to 14. X-ray of the toe is showing evidence of osteomyelitis in the middle and proximal phalanx. Culture of the wound has MSSA. Blood cultures are negative so far. Sed rate is 2, C- reactive protein is 0.36. Patient was seen by floor plan adjuster, and amputation was discussed with the patient. Patient refused any further amputation. Infectious disease consultation has been requested to assist with evaluation and treatment of his osteomyelitis toe. Review of Systems Constitutional: Denies chills, Denies fever(s), Denies night sweats Eyes: Denies discharge, Denies dry eyes Ears, Nose, Mouth, and Throat: Denies difficulty swallowing, Denies mouth lesions, Denies nasal discharge, Denies sore throat Cardiovascular: Denies chest pain, Denies leg swelling, Denies shortness of breath Respiratory: Denies chest congestion, Denies cough, Denies shortness of breath Gastrointestinal: Denies abdominal pain, Denies nausea, Denies pain with swallowing, Denies vomiting Genitourinary: Denies difficulty urinating, Denies painful urination Musculoskeletal: Denies joint pain, Denies joint swelling PMFSH - History History Provided By: Patient - Medical History Medical History: Medical History (Last Reviewed 04/11/18 @ 15:32 by Gina Brown MD) Amputated great toe Diabetes Hypothyroidism Senile dementia - Tobacco History Second Hand Smoke Exposure: No Tobacco Use In Past 30 Days: No Smoking Status: Former smoker Tobacco Type: Cigarettes - Alcohol History How Often Do You Have a Drink Containing Alcohol: Monthly or less - Substance Use History Substance History: No History of Abuse - Travel History Recent Travel in the [place] Within the Last 8 Weeks: No Recent Travel Out of the Country Within the Last 8 Weeks: No - Immunization History Tetanus Immunization: Unsure Hx Influenza Vaccine This Season: Yes Medications and Allergies Active Medications: Active Medications Aspirin (Aspirin Chew) 81 mg PO DAILY [facility] Last Admin: 04/11/18 10:40 Dose: 81 mg Atorvastatin Calcium (Lipitor) 10 mg PO HS [facility] Last Admin: 04/10/18 21:13 Dose: 10 mg Citalopram Hydrobromide (Celexa) 20 mg PO DAILY [facility] Last Admin: 04/11/18 10:39 Dose: 20 mg Dextrose (D50w Vial) 50 ml IV.PUSH UNSCH PRN PRN Reason: PER HYPOGLYCEMIA PROTOCOL Glucagon (Glucagon Inj) 1 mg OTHER PRN PRN PRN Reason: for Hypoglycemia Protocol Heparin Sodium (Porcine) (Heparin Inj) 5,000 units SQ Q12HR SATCY Sodium Chloride (Ns Inj) 1,000 mls @ 100 mls/hr IV.CONT .Q10H [facility] Last Infusion: 04/11/18 06:19 Dose: 100 mls/hr Vancomycin HCl 1,000 mg/ (Sodium Chloride) 250 mls @ 250 mls/hr IV.SIG Q24H [facility] Last Infusion: 04/11/18 11:53 Dose: Infused Piperacillin/Tazobactam/Dextrose (Zosyn 3.375 Gm Premix) 3.375 gm in 50 mls @ 100 mls/hr IV.SIG Q6H [facility] Last Infusion: 04/11/18 14:15 Dose: Infused Insulin Aspart (Novolog Insulin Correctional Sugar Inj) 0 unit SQ ACHS [facility]; Protocol Last Admin: 04/11/18 13:14 Dose: 7 unit Levothyroxine Sodium (Synthroid) 100 mcg PO DAILY@0600 [facility] Last Admin: 04/11/18 06:17 Dose: 100 mcg Melatonin (Melatonin) 5 mg PO HS PRN PRN Reason: SLEEP Last Admin: 04/10/18 21:13 Dose: 5 mg Pantoprazole Sodium (Protonix) 20 mg PO DAILY [facility] Last Admin: 04/11/18 10:40 Dose: 20 mg Sodium Chloride (Ns Flush) 2 ml IV.FLUSH PRN PRN PRN Reason: FLUSH AFTER USING IV ACCESS Last Admin: 04/11/18 10:40 Dose: 2 ml Allergies Allergy/AdvReac Type Severity Reaction Status Date / Time No Known Allergies Allergy Verified 04/09/18 14:49 Home Medications Medication Instructions Recorded Confirmed Type aspirin 81 mg PO DAILY 04/09/18 04/09/18 History atorvastatin 10 mg PO DAILY 04/09/18 04/09/18 History citalopram 20 mg PO DAILY 04/09/18 04/09/18 History insulin degludec [Tresiba 50 unit SUBCUT DAILY 04/09/18 04/09/18 History FlexTouch U-100] levothyroxine [Synthroid] 100 mcg PO DAILY 04/09/18 04/09/18 History linagliptin [Tradjenta] 5 mg PO DAILY 04/09/18 04/09/18 History lisinopril 30 mg PO DAILY 04/09/18 04/09/18 History melatonin 5 mg PO HS PRN 04/09/18 04/09/18 History metformin 1,000 mg PO BID 04/09/18 04/09/18 History omeprazole 20 mg PO DAILY 04/09/18 04/09/18 History ranitidine HCl [Zantac] 150 mg PO DAILY 04/09/18 04/09/18 History Exam Vital signs: Vital Signs 04/10/18 16:00 04/10/18 20:00 04/11/18 00:00 Temperature 98.9 F 98.1 F 98 F Pulse Rate 75 78 71 Respiratory Rate 16 16 17 Blood Pressure 164/84 H 128/66 106/54 L Pulse Oximetry 94 L 95 95 04/11/18 04:00 04/11/18 08:00 Temperature 97.1 F L 97.5 F L Pulse Rate 67 67 Respiratory Rate 18 18 Blood Pressure 115/66 137/79 Pulse Oximetry 94 L 93 L Intake & Output 04/10/18 04/11/18 04/11/18 18:59 06:59 18:59 Intake Total 550 / 550 1310 / 1310 300 / 300 Output Total 350 / 350 675 / 675 Balance 200 / 200 635 / 635 300 / 300 Weight 85.5 kg Intake: IV 550 / 550 1310 / 1310 300 / 300 NS Inj 1,000 ML @ 100 mls/hr IV 1210 / 1210 .CONT .Q10H [facility] Rx#:[id number] Magnesium Sulfate 1 gm/D5W 100 200 / 200 ml Premix 100 ML @ 100 mls/hr IV.SIG Q1H [facility] Rx#:[id number] Zosyn 3.375 GM Premix 3.375 gm 100 / 100 100 / 100 50 / 50 In 50 ml @ 100 mls/hr IV.SIG Q6H [facility] Rx#:[id number] Vancomycin Inj 1,000 MG In NS 250 / 250 250 / 250 Inj 250 ML @ 250 mls/hr IV.SIG Q24H [facility] Rx#:[id number] Output: Urine 350 / 350 675 / 675 Narrative: Physical examination GENERAL: Patient is a well-nourished, well-developed male, awake and alert, not in respiratory distress. SKIN: Cool and dry. No generalized rash. Has scattered ecchymoses in BLE. HEAD: Atraumatic. Normocephalic. No temporal wasting, or tenderness. EYES: [place] conjunctiva. No petechia or hemorrhage. Pupils equal, round and reactive to light. Extraocular movements full and intact. No scleral icterus. No injection or drainage. EARS, NOSE AND THROAT: Nose without bleeding or purulent nasal discharge. Mucous membranes pink and moist. No oral lesions noted. He is edentulous. NECK: Trachea midline. Supple and not tender, no meningeal signs CARDIOVASCULAR: Regular rate and rhythm. No murmurs, rubs or gallops heard RESPIRATORY: Clear to auscultation. Breath sounds equal bilaterally. No rales , wheezing or rhonchi ABDOMEN: Soft, non-tender, nondistended. Bowel sounds present and normoactive. No guarding. No rebound. No organomegaly. EXTREMITIES: No clubbing, cyanosis, or edema. No joint effusion, has good ROM. No calf tenderness. R foot - previous amputation of big toe, well healed. R 2nd toe is swollen and red and 2 dry areas with scab NEUROLOGICAL: Awake and alert. Cranial nerves grossly intact. Motor grossly within normal limits. PSYCHIATRIC: Normal affect, calm and cooperative. LINE: No evidence of infection Results - Labs CBC & Chem 7: 04/10/18 05:35 04/11/18 08:25 Labs: Laboratory Results - last 24 hr 04/10/18 04/10/18 04/11/18 17:21 19:59 07:55 Sodium Potassium Chloride Carbon Dioxide Anion Gap BUN Creatinine Estimated GFR POC Glucose 168 H 201 H 158 H Random Glucose Calcium Calcium Adj for Albumin Magnesium Albumin 04/11/18 04/11/18 08:25 11:57 Sodium 139 Potassium 4.3 Chloride 107 Carbon Dioxide 25.5 Anion Gap 7 BUN 11 Creatinine 1.35 H Estimated GFR 51 L POC Glucose 338 H Random Glucose 164 H Calcium 7.4 L* Calcium Adj for Albumin 8.6 Magnesium 1.8 Albumin 2.5 L Assessment and Plan - Plan Impression Osteo 2nd toe, C/S MSSA DM previous amputation R big toe for infection Recommendation Patient is refusing amputation Will give 6 weeks IV Abx IV Rocephin - land while on Abx: CBC, creat and LFT PICC Prob be able to arrange everything for D/C Friday Monitor progress I will follow with you Thank you for this consultation Explained plan to the patient Spoke with SOPHIA
[2018-04-11] MEDS: Heparin - SQ 10,000 UNITS/ML Vial SQ SCH (21:31)
[2018-04-11] MEDS: Melatonin 5 MG Tablet PO PRN (21:31)
[2018-04-12] MEDS: Sod Chloride 0.9% Inj 1,000 ML IV.CONT SCH ×4 (03:01→18:43)
[2018-04-12] MEDS: Levothyroxine 100 MCG Tablet PO SCH (05:36)
[2018-04-12] MEDS: Insulin NovoLOG Aspart Correctional Sugar Inj SQ SCH ×4 (09:20→22:37)
[2018-04-12] MEDS: Heparin - SQ 10,000 UNITS/ML Vial SQ SCH ×2 (09:21→22:34)
[2018-04-12] MEDS: Pantoprazole Sodium 20 MG DR Tablet PO SCH (09:23)
[2018-04-12] MEDS: Citalopram 20 MG Tablet PO SCH (09:23)
--- NOTE | 2018-04-12 09:30 | P.PNIM ---
Subjective Interval history: Patient says he feels "ok." He is looking forward to being discharged. Physical Exam Vital signs: Vital Signs 04/11/18 12:00 04/11/18 16:00 04/11/18 20:00 Temperature 98.0 F 97.8 F 97.4 F L Pulse Rate 73 72 72 Respiratory Rate 18 18 17 Blood Pressure 135/87 149/98 H 116/74 Pulse Oximetry 93 L 97 96 04/12/18 00:00 04/12/18 04:00 04/12/18 08:00 Temperature 97.3 F L 98.3 F 97.8 F Pulse Rate 70 70 75 Respiratory Rate 17 17 18 Blood Pressure 129/67 128/75 150/81 H Pulse Oximetry 96 94 L 93 L Intake & Output 04/11/18 04/12/18 04/12/18 18:59 06:59 18:59 Intake Total 1670 / 1670 1272 / 1272 Output Total 500 / 500 1050 / 1050 Balance 1170 / 1170 222 / 222 Weight 85.7 kg Intake: IV 1190 / 1190 1272 / 1272 NS Inj 1,000 ML @ 100 mls/hr IV 790 / 790 1272 / 1272 .CONT .Q10H [facility] Rx#:[id number] Zosyn 3.375 GM Premix 3.375 gm 50 / 50 In 50 ml @ 100 mls/hr IV.SIG Q6H [facility] Rx#:[id number] Vancomycin Inj 1,000 MG In NS 250 / 250 Inj 250 ML @ 250 mls/hr IV.SIG Q24H [facility] Rx#:[id number] Rocephin Inj 2,000 MG In NS Inj 100 / 100 100 ML @ 200 mls/hr IV.SIG Q24H [facility] Rx#:[id number] Oral 480 / 480 0 / 0 Output: Urine 500 / 500 1050 / 1050 Other: # Voids 2 Date of Last Bowel Movement 04/11/18 # Bowel Movements 0 Narrative: Alert and oriented x 3 S1 S2 CTA B/L Abd soft, nontender, normal bowel sounds Exts Right foot 2nd digit ulceration on dorsal aspect s/p amputation of right 1st digit. Neuro No neuro deficits. Results - Labs CBC & Chem 7: 04/10/18 05:35 04/11/18 08:25 Laboratory Results - last 24 hr 04/11/18 04/11/18 04/11/18 08:25 11:57 17:14 Sodium 139 Potassium 4.3 Chloride 107 Carbon Dioxide 25.5 Anion Gap 7 BUN 11 Creatinine 1.35 H Estimated GFR 51 L POC Glucose 338 H 198 H Random Glucose 164 H Calcium 7.4 L* Calcium Adj for Albumin 8.6 Magnesium 1.8 Albumin 2.5 L 04/11/18 04/12/18 20:29 07:59 Sodium Potassium Chloride Carbon Dioxide Anion Gap BUN Creatinine Estimated GFR POC Glucose 231 H 200 H Random Glucose Calcium Calcium Adj for Albumin Magnesium Albumin Microbiology 04/09/18 14:40 Blood - Peripheral Aerobic Blood Culture - Preliminary No growth in 2 days 04/09/18 14:40 Blood - Peripheral Anaerobic Blood Culture - Preliminary No growth in 2 days 04/09/18 14:45 Blood - Peripheral Aerobic Blood Culture - Preliminary No growth in 2 days 04/09/18 14:45 Blood - Peripheral Anaerobic Blood Culture - Preliminary No growth in 2 days 04/09/18 14:20 Abscess - Toe Gram Stain - Final 04/09/18 14:20 Abscess - Toe Wound Culture - Final Staphylococcus aureus Assessment and Plan - Plan This patient is an 83 y/o Male with a Dx of DM, Hypothyroidism, Dementia, hx of Right foot 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 Patient was brought in from [facility] for a right foot 2nd digit draining ulceration. He was treated outpatient with Doxycycline and Cipro however did not have any improvement in his symptoms. He was seen by a acls specialist Dr. Jackson and was sent here for further eval and care. Patient denies any significant pain, no fevers , no chills. He does not have any other complaints. 1. Severe Sepsis 2/2 Right foot 2nd digit cellulitis concern for Osteomyelitis Patient with mild complaints of foot pain. WBC count normalized. Lactate normalized Patient was evaluated by podiatry and the patient did not want to undergo amputation. Recommend agents from podiatry are to continue the patient on 6 weeks of IV antibiotics. Picc line placement pending. We are working on arrangements for IV antibiotics. Will discuss with case management. Continue IV vancomycin and zosyn. Xray shows destructive changes involving the 2nd middle and prox phalanges suggestive of osteomyelitis. 2. DM Continue low dose insulin sliding scale. 3. DLD Continue statin. Cont aspirin. 4. Hypothyroidism Continue levothyroxine.
--- NOTE | 2018-04-12 13:20 | P.DCO ---
Post Hospital Infusion Therapy - Patient Information Patient Weight: 85.7 kg - Diagnosis (1) Osteomyelitis Code(s): M86.9 - Osteomyelitis, unspecified (2) MSSA (methicillin susceptible Staphylococcus aureus) infection Code(s): A49.01 - Methicillin susceptible Staphylococcus aureus infection, unspecified site - Administer Medication Ceftriaxone Dose: 2 grams IV Directions: q 24 hours Stop Treatment: 05/22/18 - Additional Information Venous Access: PICC Line Additional Instructions: [x] Peripheral flush and dressing changes per protocol [x] Implanted port and central telephone lineman: * Implanted port: 10 ml Normal Saline followed by 5 ml Heparin 100 units/ml Heparin flush after each use and monthly to maintain. [] May leave port accessed during therapy. [] May leave peripheral site accessed for duration of therapy. [x] If patient has SOB or respiratory distress, check oxygen saturation. If less than 90% or clinical signs of respiratory distress, administer oxygen at 2 L/min. via nasal cannula and notify physician. [x] Anaphylaxis/Reaction orders: * Stop infusion. * Keep IV line open with saline flush. * Notify physician. * Monitor vital signs every 15 minutes until symptoms resolve. * Check Oxygen saturation; Oxygen at 2 L/min. via nasal cannula if less than 90% or clinical signs of respiratory distress. * Administer diphenhydramine (Benadryl) 25 mg IV STAT, (unless patient has received as pre-med). May repeat once, if necessary. * Solu-Cortef 250 mg IVP over 30-60 seconds, use 100 mg vials for each dissolution. * Epinephrine (1mg/1 ml) 0.3 mg subcutaneously or IVP now with any signs of respiratory distress. * Check with physician for new additional pre-med orders if patient is re- challenged or re-treated. [x] May remove PICC line when treatment complete, after confirming with Physician. [x] If the patient is admitted to the hospital, the ED, or transferred via [facility] , complete transfer form including medication reconciliation order sheet. Weekly Labs: CBC w/diff, Creatinine, LFTs (Hepatic Function Test) (Labs every [place] - copy to [place]) - Case Management Consult Case Management Consult-IVF: Yes (Abx) - Patient Information Allergies No Known Allergies Allergy (Verified 04/09/18 14:49)
[2018-04-13] MEDS ORDERED: Heparin Central Flush 100 UNIT/ML 5 ML Vial IV.FLUSH PRN (00:29)
[2018-04-13] MEDS: Sod Chloride 0.9% Inj 1,000 ML IV.CONT SCH ×2 (00:34→11:31)
[2018-04-13] MEDS: Levothyroxine 100 MCG Tablet PO SCH (05:49)
[2018-04-13] MEDS ORDERED: Heparin Central Flush 100 UNIT/ML 5 ML Vial IV.FLUSH SCH (09:00)
[2018-04-13] MEDS: Insulin NovoLOG Aspart Correctional Sugar Inj SQ SCH ×2 (09:10→13:21)
[2018-04-13] MEDS: Citalopram 20 MG Tablet PO SCH (09:11)
[2018-04-13] MEDS: Pantoprazole Sodium 20 MG DR Tablet PO SCH (09:13)
[2018-04-13] MEDS: Heparin - SQ 10,000 UNITS/ML Vial SQ SCH (09:13)
--- NOTE | 2018-04-13 09:22 | P.DS ---
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 Patient was brought in from [facility] for a right foot 2nd digit draining ulceration. He was treated outpatient with Doxycycline and Cipro however did not have any improvement in his symptoms. He was seen by a store protection specialist Dr. Jackson and was sent here for further eval and care. Patient denies any significant pain, no fevers , no chills. He does not have any other complaints. PMH DM, Hypothyroidism, Dementia, Surg Hx Right foot 1st digit amputation Fam Hx significant for DM Social Hx Patient denies any hx of tobacco use, Says he rarely drank any etoh his whole life, No hx drug use. 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 Patient was brought in from [facility] for a right foot 2nd digit draining ulceration. He was treated outpatient with Doxycycline and Cipro however did not have any improvement in his symptoms. He was seen by a store protection specialist Dr. Jackson and was sent here for further eval and care. Patient denies any significant pain, no fevers , no chills. He does not have any other complaints. 1. Severe sepsis secondary to right foot second digit cellulitis and osteomyelitis Patient presented with the symptoms mentioned above. The patient was found to be tachycardic with an elevated lactate, and elevated WBC count. Imaging of the right foot showed findings consistent with osteomyelitis of the distal second digit. Podiatry was consulted and discussion regarding medical management as well as were discussed with the patient. The patient did not want to undergo amputation. Infectious disease was also consulted and recommended 6 weeks of IV antibiotics with Rocephin. PICC line was placed successfully. Patient will be discharged to a care home facility for IV antibiotics and continued rehab. WBC count, lactate normalized. Blood cultures are negative. 2. Diabetes mellitus Continue home medications for diabetes. 3. Dyslipidemia Continue statin. 4. Hypothyroidism Continue levothyroxine 5. GENE on chronic kidney disease Patient currently has not serum creatinine 1.35. On admission it was 1.5 The patient serum creatinine was likely elevated due to sepsis. It appears that his symptom and is now at baseline. He can follow-up outpatient with his primary care doctor in the next 1-2 weeks. He should also follow-up outpatient with nephrology for further management of his chronic kidney disease. Be discharged to a care home facility. Plan discussed with case management. - Time Spent with Patient Total time spent providing and/or coordinating discharge services: Greater than 30 minutes - Quality: VTE Deep Vein Thrombosis/Pulmonary Embolism Present on Admission: No Exam Vital signs: Vital Signs 04/12/18 12:00 04/12/18 16:00 04/12/18 20:00 Temperature 97.2 F L 97.9 F 97.4 F L Pulse Rate 71 71 74 Respiratory Rate 18 18 18 Blood Pressure 121/61 160/100 H 130/81 Pulse Oximetry 93 L 95 95 04/13/18 00:00 04/13/18 04:00 Temperature 97.5 F L 98 F Pulse Rate 69 80 Respiratory Rate 18 18 Blood Pressure 142/86 H 134/80 Pulse Oximetry 94 L 95 Intake & Output 04/12/18 04/13/18 04/13/18 18:59 06:59 18:59 Intake Total 1208 / 1208 1617 / 1617 Output Total 700 / 700 1250 / 1250 Balance 508 / 508 367 / 367 Weight 85.7 kg 84.1 kg Intake: IV 728 / 728 1617 / 1617 NS Inj 1,000 ML @ 100 mls/hr IV 728 / 728 1517 / 1517 .CONT .Q10H [facility] Rx#:[id number] Rocephin Inj 2,000 MG In NS Inj 100 / 100 100 ML @ 200 mls/hr IV.SIG Q24H [facility] Rx#:[id number] Oral 480 / 480 Output: Urine 700 / 700 1250 / 1250 Other: # Voids 2 Date of Last Bowel Movement 04/10/18 04/13/18 # Bowel Movements 2 Narrative: Alert and oriented x 3 S1 S2 CTA B/L Abd soft, nontender, normal bowel sounds Exts Right foot 2nd digit ulceration on dorsal aspect s/p amputation of right 1st digit. Neuro No neuro deficits. Results Procedures completed during hospitalization: PICC line placement Labs on day of discharge: Labs from last 24 hours 04/13/18 04/12/18 04/12/18 07:42 22:34 17:58 POC Glucose 149 H 310 H 212 H 04/12/18 11:50 POC Glucose 239 H Preliminary micro results at discharge 04/09/18 14:40 Aerobic Blood Culture - Preliminary Blood - Peripheral No growth in 3 days Anaerobic Blood Culture - Preliminary No growth in 3 days 04/09/18 14:45 Aerobic Blood Culture - Preliminary Blood - Peripheral No growth in 3 days Anaerobic Blood Culture - Preliminary No growth in 3 days - Impressions ITS Impressions Toe X-Ray 04/09/18 14:22 CONCLUSION: Destructive change involving the second middle and proximal phalanges prostatic of osteomyelitis Discharge Plan - Discharge Disposition Patient Disposition: 03 Discharge to SNF - Discharge Condition Condition: Stable - Discharge Order Discharge Orders: Discharge Order (Routine); Ordered 04/13/18 Ordered By: Patricia Love - Physicians Team Primary Care Provider: Reji Velazquez V Attending Provider: Patricia Love Other Providers: Nguyen Bianchi DPM ; Gian Brown MD
--- NOTE | 2018-04-13 10:57 | P.PNID ---
Subjective Remarks: Patient is an 83-year-old male, who developed a wound on his right second toe about a week or so ago. He could not really remember the details but he told me that he might have bumped it. He was given a course of antibiotic by his primary care physician. Patient was seen by the head filter press tender and was instructed to go to the hospital for further evaluation and treatment. Patient gets seen by the head filter press tender and his toenails get trimmed as needed. He has had previous infection in his right foot, of the big toe, about 2 years ago, and ended up getting amputation of the big toe. He has not had any fever chills or sweats. His white count was elevated on admission up to 14. X-ray of the toe is showing evidence of osteomyelitis in the middle and proximal phalanx. Culture of the wound has MSSA. Blood cultures are negative so far. Sed rate is 2, C- reactive protein is 0.36. Patient was seen by head filter press tender, and amputation was discussed with the patient. Patient refused any further amputation. Infectious disease consultation has been requested to assist with evaluation and treatment of his osteomyelitis toe. Notes reviewed No fever Anxious to be D/C Waiting for acceptance to SNF His [facility] will not take him Abx form filled out Antibiotics: Rocephin Lines: PICC Past Medical History: Amputated great toe Diabetes Hypothyroidism Senile dementia Allergies/Adverse Reactions: Allergies No Known Allergies Allergy (Verified 04/09/18 14:49) Objective Vital Signs 04/12/18 12:00 04/12/18 16:00 04/12/18 20:00 Temperature 97.2 F L 97.9 F 97.4 F L Pulse Rate 71 71 74 Respiratory Rate 18 18 Blood Pressure 121/61 160/100 H 130/81 Pulse Oximetry 93 L 95 95 04/13/18 00:00 04/13/18 04:00 04/13/18 08:00 Temperature 97.5 F L 98 F 97.8 F Pulse Rate 69 80 74 Respiratory Rate 18 18 17 Blood Pressure 142/86 H 134/80 133/78 Pulse Oximetry 94 L 95 90 L Intake & Output 04/12/18 04/13/18 04/13/18 18:59 06:59 18:59 Intake Total 1208 / 1208 1617 / 1617 Output Total 700 / 700 1250 / 1250 Balance 508 / 508 367 / 367 Weight 85.7 kg 84.1 kg Intake: IV 728 / 728 1617 / 1617 NS Inj 1,000 ML @ 100 mls/hr IV 728 / 728 1517 / 1517 .CONT .Q10H [facility] Rx#:[id number] Rocephin Inj 2,000 MG In NS Inj 100 / 100 100 ML @ 200 mls/hr IV.SIG Q24H [facility] Rx#:[id number] Oral 480 / 480 Output: Urine 700 / 700 1250 / 1250 Other: # Voids 2 Date of Last Bowel Movement 04/10/18 04/13/18 # Bowel Movements 2 04/09/18 14:40 Blood - Peripheral Aerobic Blood Culture - Preliminary No growth in 3 days 04/09/18 14:40 Blood - Peripheral Anaerobic Blood Culture - Preliminary No growth in 3 days 04/09/18 14:45 Blood - Peripheral Aerobic Blood Culture - Preliminary No growth in 3 days 04/09/18 14:45 Blood - Peripheral Anaerobic Blood Culture - Preliminary No growth in 3 days 04/09/18 14:20 Abscess - Toe Gram Stain - Final 04/09/18 14:20 Abscess - Toe Wound Culture - Final Staphylococcus aureus Lab - Chemistry Results 04/11/18 04/11/18 04/11/18 11:57 17:14 20:29 POC Glucose 338 H 198 H 231 H 04/12/18 04/12/18 04/12/18 07:59 11:50 17:58 POC Glucose 200 H 239 H 212 H 04/12/18 04/13/18 22:34 07:42 POC Glucose 310 H 149 H Imaging: ITS Impressions Toe X-Ray 04/09/18 14:22 CONCLUSION: Destructive change involving the second middle and proximal phalanges prostatic of osteomyelitis Physical Exam: GENERAL: awake and alert, not in respiratory distress. SKIN: Cool and dry. No generalized rash. Has scattered ecchymoses in BLE. HEAD: Atraumatic. Normocephalic. No temporal wasting, or tenderness. EYES: [place] conjunctiva. No petechia or hemorrhage. No scleral icterus. No injection or drainage. EARS, NOSE AND THROAT: Mucous membranes pink and moist. No oral lesions noted. He is edentulous. NECK: Trachea midline. Supple and not tender, no meningeal signs CARDIOVASCULAR: Regular rate and rhythm. No murmurs, rubs or gallops heard RESPIRATORY: Clear to auscultation. Breath sounds equal bilaterally. No rales , wheezing or rhonchi ABDOMEN: Soft, non-tender, nondistended. Bowel sounds present and normoactive. No guarding. No rebound. No organomegaly. EXTREMITIES: No clubbing, cyanosis, or edema. No calf tenderness. R foot - previous amputation of big toe, well healed. R 2nd toe is swollen and red and 2 dry areas with scab NEUROLOGICAL: Grossly non-focal. PSYCHIATRIC: Normal affect, calm and cooperative. LINE: No evidence of infection Assessment and Plan (1) Osteomyelitis Status: Acute Code(s): M86.9 - Osteomyelitis, unspecified (2) MSSA (methicillin susceptible Staphylococcus aureus) infection Status: Acute Code(s): A49.01 - Methicillin susceptible Staphylococcus aureus infection, unspecified site - Plan Impression Osteo 2nd toe, C/S MSSA DM previous amputation R big toe for infection Recommendation 6 weeks IV Rocephin - labs while on Abx: CBC, creat and LFT - Abx form filled put Ok to give Abx early today if he will be D/C - spoke with RN Spoke with CM - awaiting ok from SNF that he is accepted Ok for D/C from ID standpoint
== END 2018-04-13 13:57 ==
LOC: NEPC 12:30 → NEDA 16:12 → N04 18:57
PROVIDERS: ADMIT Hospitalist; ATTEND Hospitalist